=== PATIENT | male | born 1990 | race Caucasian/White ===

== ENCOUNTER 2024-10-20 10:19 | Emergency (ER) | payer OTHER, SELFPAY ==
[2024-10-20 10:20] VITALS: BMI 20.3
[2024-10-20 10:30] VITALS: BP 144/84; PULSE 98; RESP 20; TEMP 36.6; O2SAT 100
--- NOTE | 2024-10-20 10:36 | XR_ITS ---
Examination: Hand, left 3 views Technique: Hand AP, oblique, lateral 3 views Date and time of exam: October 22, 2024, 1035 hrs. Indications: Injury to the hand today, hand pain. Findings: Amputation deformity ungual tuft tip distal phalanx fourth digit Comminuted fractures mid and distal aspect distal phalanx third digit with amputation deformity and displaced fracture fragments No foreign bodies Impression: Amputation deformity ungual tuft tip distal phalanx fourth digit Comminuted displaced fractures distal phalanx third digit
--- NOTE | 2024-10-20 10:40 | PC.LAC ---
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 Patient states pain to left hand digits, 9/10 at this time, provider aware of patients status. Call light within reach.
[2024-10-20] MEDS: ONDANSETRON INJ 2 MG/ML INJ 2 ML 4 MG IVP (10:58)
[2024-10-20] MEDS: MORPHINE SULF INJ 10 MG/ML VIAL 4 MG IVP (11:00)
--- NOTE | 2024-10-20 11:01 | EDNOTE_ITS ---
Upper Extremity Injury RME/HPI General Chief Complaint: Hand/Wrist Problems Stated Complaint: MULTIPLE CUTS TO TIPS FINGER LEFT HAND Time Seen by Provider: 10/20/24 10:21 Arrival date/time: 10/20/24 10:19 Limitations: no limitations RME / HPI RME / HPI narrative: DR. MARIANGEL LARIOS ED EVALUATION: Patient is a 34-year-old male with significant concerns for multiple finger amputations on his left hand. Approx 5 mins [employer] patient incurred partial amputations of his 4th and 5th digit on his left hand. Patient was working on a lawnmower when this happened. Patient was able a partially amputated fourth digit and presented to the emergency room. Patient states that his last tetanus vaccine was approximately 2 years ago. Denies any other injuries. Patient subsequently blood pressure at presentation prescription medications. Patient does not have any noncompliance, no allergies to medications. Review of systems is otherwise negative, denies chest pain abdominal pain, nausea vomiting. He denies any changes in sensation to his hand. MD complaint: injury to: left (Partial amputations of the distal inner phalanx 3rd and 4th digit of the left hand, not actively bleeding. 2+ radial ulnar pulses bilateral symmetric intact. Sensation intact, range of motion limited secondary to) Onset (ago): minute(s) (10 minutes prior to arrival) Related Data Previous Rx's ?Medication ?Instructions ?Recorded ibuprofen 600 mg tablet 1 tab PO Q8HR PRN pain #30 t abs 09/27/15 Allergies Allergy/AdvReac Type Severity Reaction Status Date / Time No Known Allergies Allergy Verified 10/20/24 10:22 Review of Systems Review of Systems Systems Reviewed: All systems reviewed, normal except as documented Past Medical History Surgical History SURGICAL: Positive Amputation (this visit partial amputation to tip of left hand 3rd and 4th digit.) Social History SMOKING STATUS: Never smoker SUBSTANCE USE: does not use ALCOHOL: Never ED Exam General Limitations: Present no limitations General appearance: Present alert and in no apparent distress Head Head exam: Present atraumatic, normocephalic and normal inspection Eye Eye exam: Present normal appearance, PERRL and EOMI ENT ENT exam: Present normal exam, normal oropharynx and mucous membranes moist Neck Neck exam: Present normal inspection, full ROM and trachea midline Chest Chest inspection: Present normal inspection and symmetric chest wall rise Respiratory Respiratory exam: Present normal lung sounds bilaterally Cardiovascular Cardiovascular exam: Present regular rate, normal rhythm and normal heart sounds Abdominal Exam Abdominal exam: Present soft and normal bowel sounds Extremities Exam Extremities exam: Present normal inspection and full ROM Back Exam Back exam: Present normal inspection and full ROM Neurological Exam Neurological exam: Present alert, oriented X3 and CN II-XII intact Psychiatric Psychiatric exam: Present normal affect and normal mood Skin Skin exam: Present warm, dry, intact and normal color Course Quality Measures none Orders Category Date Time Status Wound Care [Wound Care] NOW Care 10/20/24 11:19 Active XR hand comp LT min 3V Stat Exams 10/20/24 10:36 Completed Lidocaine 1% 20 ml [Xylocaine 1% 20 ML] Med 10/20/24 21:52 Discontinued 20 ml IM X1 ONE Morphine Inj Med 10/20/24 10:53 Discontinued 4 mg IVP X1 ONE Ondansetron Inj [Zofran Inj] Med 10/20/24 10:53 Discontinued 4 mg IVP X1 ONE TET,DIP/PERT AC (Adult)-Tdap [Boostrix Adult (Tdap) Med 10/20/24 11:01 Discontinued Vacc] 0.5 ml IMI .ONCE ONE ceFAZolin/D5W 2 GM IV [Ancef 2gm Ivpb] Med 10/20/24 11:01 Discontinued 2 gm in 100 ml IV X1 oxyCODONE/APAP 5/325 [Percocet 5/325] Med 10/20/24 13:38 Discontinued 1 tab PO X1 ONE Late Tray Request Routine Oth 10/20/24 17:43 Active Reevaluation(s) Reevaluation #1: Patient at this time would no longer like to pursue re-implantation. Patient would like to go to [place] and get it reconstructed. Time: 14:55 Vital Signs Vital signs: Vital Signs Temperature 97.8 F 10/20/24 10:30 Pulse Rate 98 10/20/24 10:30 Respiratory Rate 20 10/20/24 10:30 Blood Pressure 144/84 H 10/20/24 10:30 Pulse Oximetry (%) 100 10/20/24 10:30 Oxygen Delivery Method Room Air 10/20/24 10:30 Extremity Injury MDM Narrative MDM Narrative:: Patient is a 34-year-old male with significant concerns for multiple finger amputations on his left hand. Approx 5 mins [employer] patient incurred partial amputations of his 4th and 5th digit on his left hand. Patient was working on a lawnmower when this happened. Patient was able a partially amputated fourth digit and presented to the emergency room. Patient states that his last tetanus vaccine was approximately 2 years ago. Denies any other injuries. Patient subsequently blood pressure at presentation prescription medications. Patient does not have any noncompliance, no allergies to medications. Place patient in resuscitation, pending x-rays, ordered x-rays of the left hand as well as antibiotics. Also thoroughly irrigated patient's wound. Immediately placed a consult for hand surgery. Amy Dobson am scribing for and in the presence of Dr. Leija. Patient data External records reviewed:: [facility] previous records Clinical information provided by:: patient Social determinants that could affect healthcare access:: none Patient has the following chronic illnesses:: No known PMHx, surgeries, daily medications, or known allergies. How is presenting disease/condition affected by chronic disease/condition?: no chronic disease Evaluation data The following diagnostics were reviewed and interpreted by me:: radiology exam(s) Lab and/or radiology exams considered but not ordered:: none Interpretation Summary: Procedure(s): XR hand comp LT min 3V Accession Number(s): [id number] cc: Rachid Bahena MD; Janay Leija MD~ Examination: Hand, left 3 views Technique: Hand AP, oblique, lateral 3 views Date and time of exam: October 22, 2024, 1035 hrs. Indications: Injury to the hand today, hand pain. Findings: Amputation deformity ungual tuft tip distal phalanx fourth digit Comminuted fractures mid and distal aspect distal phalanx third digit with amputation deformity and displaced fracture fragments No foreign bodies Impression: Amputation deformity ungual tuft tip distal phalanx fourth digit Comminuted displaced fractures distal phalanx third digit Dictated By: Rachid Bahena MD Medications / Prescriptions Medications or Prescriptions considered but not ordered:: none Medication administrations:: Medication Administration History Discontinued Medications Diphtheria/Tetanus/Acell Pertussis (Diphth,Pertuss(Acell),Tet Vac 0.5 Ml Syr- Adult) 0.5 ml IMi .ONCE ONE Stop: 10/20/24 11:02 Last Admin: 10/20/24 11:06 Dose: Not Given Documented By: MARILYN Non-Admin Reason: Patient Refused Comments: NOT GIVEN; PT'S LAST TDAP SHOT BACK IN 2021. Cefazolin Sodium (Ancef 2gm Ivpb) 2 gm in 100 mls @ 200 mls/hr IV X1 ONE Stop: 10/20/24 11:30 Last Infusion: 10/20/24 11:40 Dose: Infused Documented By: Admin: 10/20/24 11:09 Dose: 200 mls/hr Documented By: MARILYN Lidocaine HCl (Lidocaine Hcl 1% 20 Ml Vial) 20 ml IM X1 ONE Stop: 10/20/24 21:53 Morphine Sulfate (Morphine Sulf Inj 10 Mg/Ml Vial) 4 mg IVP X1 ONE Stop: 10/20/24 10:54 Last Admin: 10/20/24 11:00 Dose: 4 mg Documented By: ALEJANDRO Ondansetron HCl (Ondansetron Inj 2 Mg/Ml Inj 2 Ml) 4 mg IVP X1 ONE; Protocol Stop: 10/20/24 10:54 Last Admin: 10/20/24 10:58 Dose: 4 mg Documented By: ALEJANDRO Oxycodone/Acetaminophen (Oxycodone/Apap 5/325 Tablet) 1 tab PO X1 ONE Stop: 10/20/24 13:39 Last Admin: 10/20/24 13:51 Dose: 1 tab Documented By: ALEJANDRO see above Consultations Consultation(s) initiated? (list below): Yes Consultation #1 (Physician, Specialty, Details): Discussed test HPI, PMHx, lab, radiology results and/or management with Dr. Macias. He is plastics specialty and recommends to contact [facility] [place] to see if the patient is a candidate for re-implantation. If patient is not a candidate then Dr. Macias is happily able to accept for transfer for reconstruction. Time: 12:55 Consultation #2 (Physician, Specialty, Details): Discussed test HPI, PMHx, lab, radiology results and/or management with Dr. Mariscal from [facility] [place]. He states that the amputated part is not re- attachable. Time: 15:13 Diagnosis Upper Extremity Injury Differential Diagnosis: other (traumatic partial digit amputation, open phalangeal fracture, and flexor tendon injury) Admission Indicated Admission indicated?: not indicated Explain why admission is indicated or not indicated:: Patient needs higher level of care and will be transferred. Admission Request Was there a request for admission?: No Disposition Plan Disposition Plan: Transfer Critical Care Time Critical Care Time Critical Care Time: Yes Total Critical Care Time (min.): 40 Attestation: The high probability of sudden, clinically significant deterioration in the patient?s condition required the highest level of my preparedness to intervene urgently. The services I provided to this patient were to treat and/or prevent clinically significant deterioration. Services included the following: chart data review, reviewing nursing notes and/or old charts, documentation time, furniture sales consultant collaboration regarding findings and treatment options, medication orders and management, direct patient care, vital sign assessments and ordering, interpreting and reviewing diagnostic studies and lab tests. Aggregate critical care time includes only time during which I was engaged in work directly related to the patient?s care, as described above, whether at bedside or elsewhere in the Emergency Department. It did not include time spent performing other reported procedures or the services of residents, students, nurses or physician assistants. Discharge Plan Prescriptions/Referrals Prescriptions/Med Rec: No Action ibuprofen 600 MG tablet 1 tab PO Q8HR PRN (Reason: pain) Qty: 30 0RF Referrals: No Primary/Family,Physician [Referring Provider] - In 1 week Patient/Caregiver Discharge Instructions Print Language: Finnish
[2024-10-20] MEDS: ceFAZolin/D5W 2 GM IV 2 GM/100 ML BAG IV (11:09)
--- NOTE | 2024-10-20 11:11 | PC.CC ---
Addendum entered by Francine Noguera RN 10/20/24 19:21: 1920 received call from Kimberly at [facility] that Dr. Macias has not returned the call yet. She recommended contacting other facilities like [facility]. But she stated she will continue to work on the transfer. Addendum entered by Francine Noguera RN 10/20/24 16:27: Called [facility] to f/u on transfer, they are still waiting for Dr Macias to call back. Addendum entered by Francine Noguera RN 10/20/24 15:13: 1505 - On-call surgeon Dr Mariscal returned call and transferred to Dr Leija for [id number]. 1512 - Dr Mariscal returned call and informed Dr Leija the re-implantation is not possible. Will continue to await call-back form Dr Macias for re-construction. Addendum entered by Francine Noguera RN 10/20/24 14:59: 1454 - received call from Dr Leija; pt is now asking to cancel reattachment transfer and move forward with reconstruction transfer with Dr Macias. Call placed to Patricia at [facility] who will speak with Dr Macias and call back. Addendum entered by Francine Noguera RN 10/20/24 14:16: 1300 - Per Dr Leija, Dr Macias [facility] called the ER directly and asked her to call [facility] and [facility] locations to inquire about re-attachment; if they are unable to accept the patient, call recontact Dr Beth. 1403 - call placed to [facility] answering service spoke with Ely regarding request for transfer for finger amputation. On-call surgeon Dr Mariscal will be contacted by the answering service. Addendum entered by Francine Noguera RN 10/20/24 11:49: 1126 - clinical information faxed to [facility]. Original Note: 1111 - tx initiated for hand specialist due to 3rd and 4th left digit partial amputation; spoke with [facility], call transferred to ED MD Dr Leija.
[2024-10-20 12:36] VITALS: BP 128/77; PULSE 74; RESP 15; TEMP 36.8; O2SAT 100
--- NOTE | 2024-10-20 13:20 | PC.NURSE ---
Patient pending transfer to other facility, Dr. Leija speaking with patient regarding plan of care
[2024-10-20 14:00] VITALS: BP 131/87; PULSE 79; RESP 20; TEMP 36.8; O2SAT 100
[2024-10-20 14:05] VITALS: BP 131/87; PULSE 79; RESP 20; TEMP 36.8; O2SAT 100
--- NOTE | 2024-10-20 15:54 | PC.NURSE ---
Patient updated on plan of care, patient states pain to left hand 3rd and 4th digit is 5/10 at this time and is tolerable, remains at bedside, patient has no other needs at this time.
[2024-10-20 17:38] VITALS: BP 129/82; PULSE 69; RESP 16; TEMP 37.2; O2SAT 98
--- NOTE | 2024-10-20 17:40 | PC.NURSE ---
Patient states pain to left hand 3rd and 4th digit, 5/10 at this time and is tolerable, per transfer nurse still awaiting call back from [facility], patient made aware, call light within reach, patient has no other needs at this time.
--- NOTE | 2024-10-20 20:24 | PC.NURSE ---
initiated transfer to [facility]. Presented packet to Shai at transfer center. They stated they have hand specialty on board. Transfer call to Shailesh for emtala questions.
--- NOTE | 2024-10-20 23:00 | PD.EDADDENDU ---
Emergency Room Addendum <Eduarda Tyler - Last Filed: 10/20/24 23:08> Addendum Narrative: 1800: Care assumed from Dr. Leija (emergency physician). Past medical, surgical, social and family history reviewed. Vitals and home medications reviewed. Results and treatment plan discussed. I will assume the care of the patient at this time and will follow the patient, pending consult and wound care. The following addendum documentation note is intended to reflect any pending information, findings, or radiology results not included in the patient?s initial chart by the previous shift scribe. <Yakov Cash DO - Last Filed: 10/20/24 23:10> Addendum Narrative: 1800: Care assumed from Dr. Leija (emergency physician). Past medical, surgical, social and family history reviewed. Vitals and home medications reviewed. Results and treatment plan discussed. I will assume the care of the patient at this time and will follow the patient, pending consult and wound care. The following addendum documentation note is intended to reflect any pending information, findings, or radiology results not included in the patient?s initial chart by the previous shift scribe. Case was signed out to me. I went to examine the patient's fingertip amputations. There is no bone that needs to be ronjoured. I performed a digital block to the left 3rd and 4th fingers using 1% lidocaine without epinephrine with good pain control. I then dressed the hand in a bulky dressing with Xeroform gauze. I had been in contact with Dr. Macias who has offered to help with this patient. I do not believe the patient needs to see Dr. Gilberto montano. He can follow-up with Dr. Macias on an outpatient basis. The patient is agreeable to that. Patient will be discharged on [place] and cephalexin to be taken as prescribed. He was given the office number for Dr. Macias to call on Tuesday to arrange follow-up appointment. There is no surgical need at this time.
--- NOTE | 2024-10-20 23:08 | PC.NURSE ---
[facility] updated on transfer, per MD Cash and conversation with Hand Specialist Gilberto- pt ok to be seen out pt and does not need immediate transfer from our facility.
[2024-10-20] MEDS: LIDOCAINE HCL 1% 20 ML VIAL IM (23:50)
== END 2024-10-21 00:01 | disposition home or self-care (01) ==
PROVIDERS: Emergency Provider Emergency Medicine; PCP Family Medicine
DX: S68.123A Partial traumatic metacarpophalangeal amputation of left middle finger, initial encounter (principal); S68.125A Partial traumatic metacarpophalangeal amputation of left ring finger, initial encounter; W45.8XXA Other foreign body or object entering through skin, initial encounter
CPT/HCPCS: 73130; 96365; 96375; 99283; J0689; J2270; J2405; J3490; A9270